=== PATIENT | female | born 1935 | race Caucasian/White ===

== ENCOUNTER → 2020-10-28 | Outpatient (CLI) | payer MEDICARE, OTHER ==
[~2020-10-28] MED LIST: ALBUTEROL2.5 MG/3 M INH; ASPIRIN81 MG PO; ATORVASTATIN CA40 MG PO; BASAGLAR K100 UNIT/1 SQ; CELEXA20 MG PO; COLACE 100MG C100 MG PO; FEOSOL325 MG PO; IMDUR ER TAB 3030 MG PO; KEPPRA250 MG PO; LIDODERM TOP; MS CONTIN30 MG PO; NEURONTIN 100100 MG PO; NITROSTAT 0.40.4 MG SL; NOVOLOG100 UNIT/1 SQ; PERCOCET 7.5-31 EACH PO; PLAVIX 75 MG TA75 MG PO; PROVENTIL HFA6.7 GM INH; SYNTHROID88 MCG PO; ZESTRIL2.5 MG PO
== END ==
LOC: MRI 13:00
DX: D43.4 Neoplasm of uncertain behavior of spinal cord (principal); M43.26 Fusion of spine, lumbar region; M51.26 Other intervertebral disc displacement, lumbar region
CPT/HCPCS: 36415; 72158; 82565; A9576